=== PATIENT | female | born 1995 | race Caucasian/White ===

== ENCOUNTER 2020-12-22 15:53 | Emergency (ER) | payer OTHER ==
[~2020-12-22] VITALS: Ht 157.5 cm; Wt 52.2 kg
[~2020-12-22 15:53] MED LIST: CIPRO500 MG PO; CONEX TABLET1 EACH PO; DOLOGESIC CAPLE1 TAB PO; FLAGYL500MG PO; INTESTINEX1 CAP PO; TUSICOF LIQUID120 ML PO; ZANTAC150 M3 PO
[2020-12-22] MEDS ORDERED: INTESTINEX680 M2 PO (23:42)
[2020-12-22] MEDS ORDERED: AZITHROMYCIN500 MG PO (23:42)
[2020-12-22] MEDS ORDERED: NAPROXEN375 MG PO (23:42)
[2020-12-22] MEDS ORDERED: PEPCID AC20 MG PO (23:42)
== END 2020-12-23 00:34 | disposition home or self-care (01) ==
LOC: ER 15:53
DX: A49.3 Mycoplasma infection, unspecified site (principal); B34.9 Viral infection, unspecified; J06.9 Acute upper respiratory infection, unspecified; R19.7 Diarrhea, unspecified; R51.9 Headache, unspecified

== ENCOUNTER 2021-12-07 13:41 | Emergency (ER) | payer OTHER ==
[~2021-12-07] VITALS: Ht 157.5 cm; Wt 52.2 kg
[~2021-12-07 13:41] MED LIST changes: +AZITHROMYCIN500 MG PO; +INTESTINEX680 M2 PO; +NAPROXEN375 MG PO; +PEPCID AC20 MG PO
[2021-12-07] MEDS ORDERED: WELLBUTRIN SR150 MG PO (14:18)
[2021-12-07] MEDS ORDERED: BUSPIRONE HCL5 MG PO (14:19)
== END 2021-12-07 19:13 | disposition home or self-care (01) ==
LOC: ER 13:41
DX: U07.1 COVID-19 (principal)

== ENCOUNTER 2021-12-14 08:52 | Emergency (ER) | payer OTHER ==
[~2021-12-14] VITALS: Ht 157.5 cm; Wt 52.2 kg
[~2021-12-14 08:52] MED LIST changes: +BUSPIRONE HCL5 MG PO; +WELLBUTRIN SR150 MG PO
== END 2021-12-14 16:39 | disposition home or self-care (01) ==
LOC: ER 08:52
DX: U07.1 COVID-19 (principal)

== ENCOUNTER 2023-05-04 14:05 | Emergency (ER) | payer OTHER ==
[~2023-05-04] VITALS: Ht 157.5 cm; Wt 50.8 kg
[2023-05-04] MEDS ORDERED: DICLOFENAC SODI75 MG PO (15:49)
[2023-05-04] MEDS ORDERED: NORFLEX100MG PO (15:49)
== END 2023-05-04 17:11 | disposition home or self-care (01) ==
LOC: ER 14:05
DX: S39.82XA Other specified injuries of lower back, initial encounter (principal); V49.9XXA Car occupant (driver) (passenger) injured in unspecified traffic accident, initial encounter; Y93.89 Activity, other specified; Y92.413 State road as the place of occurrence of the external cause; S69.81XA Other specified injuries of right wrist, hand and finger(s), initial encounter; S70.01XA Contusion of right hip, initial encounter